=== PATIENT | male | born 1940 | race Caucasian/White ===

== ENCOUNTER 2020-04-19 12:18 | Emergency (ER) | payer MEDICARE, OTHER, SELFPAY ==
--- NOTE | ~2020-04-19 | XR_ITS ---
XR hip LT min 3V w AP pelvis DATE: 04/19/2020 14:03 INDICATION: Fall. Left hip injury, pain TECHNIQUE: AP pelvis. AP, lateral and crosstable lateral views of left hip COMPARISON: None FINDINGS: There is a posterior medially displaced fracture of the proximal to mid shaft of the left f emur. There is mild osteoarthritic spurring of the left femoral head. No fracture or dislocation, avascular necrosis or bone destruction is noted at the left hip. No pelvic fracture is evident. The pubic symphysis and sacroiliac joints are intact. IMPRESSION: Fracture of the left femoral shaft Osteoarthritic is of the left hip joint Reviewed, dictated and finalized at location B. SPECIALIST
--- NOTE | ~2020-04-19 | XR_ITS ---
XR chest 1V DATE: 04/19/2020 14:03 INDICATION: Fall TECHNIQUE: 2 AP views COMPARISON: 08/01/2017 portable AP chest FINDINGS: Status post sternotomy. Normal heart size. Aortic arch calcification. No pulmonary infiltrate or consolidation, pleural effusion or pulmonary vascular congestion or pneumo thorax is evident. Diffuse osteopenia. There is osteoarthritic change at the left glenohumeral joint. IMPRESSION: Status post sternotomy; no active cardiopulmonary disease Reviewed, dictated and finalized at location B. AULIC DREDGE OPERATOR
--- NOTE | ~2020-04-19 | XR_ITS ---
XR knee LT 2V DATE: 04/19/2020 14:03 INDICATION: Fall. Left leg injury TECHNIQUE: AP and crosstable lateral views COMPARISON: None FINDINGS: There is a posterolaterally displaced fracture of the mid femoral shaft. There is a long stem femoral articular prosthesis associated with left knee arthroplasty with patella r resurfacing. The prosthetic components appear intact and normally aligned. IMPRESSION: Posterolaterally displaced fracture of the midshaft of the left femur Reviewed, dictated and finalized at location B. PLACEMENT IMPRESSION: Posterolaterally displaced fracture of the midshaft of the left fem ur
--- NOTE | ~2020-04-19 | XR_ITS ---
XR femur LT min 2V DATE: 04/19/2020 14:03 INDICATION: Fall TECHNIQUE: AP and crosstable lateral views COMPARISON: 04/19/2020 left femur FINDINGS: There is a fracture of the mid shaft of the left femur with complete posterolateral displac ement. Left total knee arthroplasty, including long stem femoral component. The prosthetic components appea r intact and normally aligned. IMPRESSION: Mid shaft fracture of left femur Reviewed, dictated and finalized at location B. YST BUSINESS ANALYSIS
--- NOTE | ~2020-04-19 | CT_ITS ---
EXAMINATION: CT brain wo con DATE: 04/19/2020 13:45 INDICATION: Status post fall. Head injury. TECHNIQUE: Computed tomography (CT) of the head was performed without intravenous contrast. The dose- length product was 605.33 mGy-cm. The mA was adjusted according to patient size. Iterative reconstruc tion technique was employed. COMPARISON: CT dated 08/01/2017 FINDINGS: Small chronic right thalamic infarction. Generalized atrophy. There are scattered mild guru ventricular and subcortical white matter changes, most likely related to small vessel ischemic diseas e (microangiopathy). No ventriculomegaly or midline shift. There is intracranial atherosclerosis. Par anasal sinuses and mastoids are pneumatized. No depressed skull fractures. No acute intracranial hemo rrhage, infarction, mass or mass effect. IMPRESSION: 1. No acute intracranial abnormality. 2: Focal chronic right thalamic infarction. 3: Chronic age-related findings. Reviewed, dictated and finalized at location A. ER WINDER
[2020-04-19 12:26] VITALS: BP 187/91; PULSE 65; RESP 18; TEMP 36.4; O2SAT 100
--- NOTE | 2020-04-19 13:25 | ED.FALL ---
HPI - Fall General Chief Complaint: Fall Stated Complaint: FALL Time Seen by Provider: 04/19/20 12:44 Source: family and EMS Mode of arrival: EMS History of Present Illness HPI Narrative: Patient is 80 years old white male came to the emergency room by ambulance after a fall at home. Patient's is telling me that patient had history of CVA, with left hemiplegia. Usually uses a walker, today was not using his walker somehow lost his balance and fell. Possible head injury. No loss of consciousness. Patient on aspirin and Plavix. Patient complaining of left knee and left groin pain. Patient denies other injuries. Related Data Allergies Allergy/AdvReac Type Severity Reaction Status Date / Time niacin Allergy Mild HOT FLASHES Verified 04/19/20 12:32 codeine AdvReac Mild NAUSEA/SORE Verified 04/19/20 12:32 STOMACH lisinopril AdvReac Mild DRY COUGH Verified 04/19/20 12:32 Review of Systems Review of Systems: Narrative: CONSTITUTIONAL: Denies fever, chills, or sweats. EYES: Denies visual changes, redness, or discharge. ENT: Denies rhinorrhea, congestion, sore throat, or otalgia. CARDIOVASCULAR: Denies chest pain, palpitations, or edema. RESPIRATORY: Denies cough or dyspnea. GASTROINTESTINAL: Denies abdominal pain, nausea, vomiting, or diarrhea. GENITOURINARY: Denies dysuria or hematuria. SKIN: Denies rash or itching. MUSCULOSKELETAL: Denies back pain, joint pain, or myalgia. NEUROLOGIC: Denies headache, numbness, or weakness. PSYCHIATRIC: Denies anxiety or depression. PMFSH Past Medical History Medical History (Updated 04/19/20 @ 16:16 by Margarito Tidwell MD) Left hemiplegia Social History Social History Gender identity (if verbalized by the patient): Male Exam Narrative: Exam Narrative: General appearance: Well-developed, well-nourished Skin: Normal color Head: Normocephalic, nontraumatic Eyes: Clear conjunctiva ENT: Oropharynx normal, ears normal, nose normal Neck: Supple, nontender Chest and respiratory: Airway patent, no respiratory distress, no accessory muscle use Heart: Regular rate/rhythm Abdomen: Soft, nontender, no organomegaly, quiet bowel sounds Vascular: Normal peripheral pulses, normal capillary refill. Musculoskeletal: Diffuse pain left knee anteriorly, no deformity, limited range of motion of left knee and left hip. Left lower extremity is shorter and externally rotated compared to the right while Neurologic: Alert and oriented ?3, PERSONAL LINES INSURANCE AGENT is normal as tested, no gross motor deficit Course Course Emergency Course: Stable Consultations Consultation #1: Dr. Dubose/ Transfer the patient to other facility because of the knee prosthesis Date: 04/19/20 Time: 16:16 Consultation #2: Dr. Perez/[facility] ED physician Date: 04/19/20 Time: 16:17 Vital Signs Vital signs: Vital Signs Temperature 36.4 C L 04/19/20 12:26 Pulse Rate 65 04/19/20 12:26 Respiratory Rate 18 04/19/20 12:26 Blood Pressure 187/91 H 04/19/20 12:26 Pulse Oximetry 100 04/19/20 12:26 Temperature 36.4 C L 04/19/20 12:26 Pulse Rate 65 04/19/20 16:17 Respiratory Rate 18 04/19/20 16:17 Blood Pressure 204/78 H 04/19/20 16:17 Pulse Oximetry 99 04/19/20 16:17 MDM - Fall MDM Narrative Medical decision making narrative: Patient came with a fall. Labs, CT head, x-ray left hip and pelvis, x-ray left knee, Zofran and morphine IV ordered. Further plan to follow Differential Diagnosis Differential diagnosis: Likely concussion without loss of consciousness and other (Electrolyte imbalance, urinary tract infection, head injury, hip fracture or knee fracture) Lab Data
--- NOTE | 2020-04-19 13:41 | PC.NURSE ---
Pt to XRAY via stretcher.
[2020-04-19] MEDS: MORPHINE SULFATE (*CRX) 4 MG/ML INJ IV PUSH (14:13)
[2020-04-19] MEDS: ONDANSETRON INJ 4 MG/2 ML VIAL IV PUSH (14:13)
[2020-04-19 14:17] VITALS: BP 222/86; PULSE 63; RESP 18; O2SAT 100
[2020-04-19 14:44] LABS: Partial Thromboplastin Time 25.6 SECONDS (22.3-36.8); Prothrombin Time 13.9 Seconds (11.1-14.7)
[2020-04-19 14:50] LABS: Alanine Aminotransferase 15 U/L (4-50); Albumin Level 3.9 g/dL (3.5-5.1); Alkaline Phosphatase 62 U/L (38-126); Anion Gap 3 mmol/L (8-16); Aspartate Amino Transferase 24 U/L (17-59); Bilirubin,Total 0.9 mg/dL (0.2-1.3); Blood Urea Nitrogen 19 mg/dL (9-20); Calcium 9.5 mg/dL (8.4-10.2); Carbon Dioxide 30 mmol/L (22-30); Chloride 107 mmol/L (98-107); Estimated CRCL calculation 46 ml/min; Estimated Glomerular Filt Rate 49; Glucose 123 mg/dL (75-110); Potassium 5.8 mmol/L (3.4-5.0); Sodium 140 mmol/L (137-145)
[2020-04-19 14:51] LABS: Add Urine Microscopic? YES; Appearance Urine Clear (Clear); Bilirubin Urine Negative (Negative); Blood Urine Negative (Negative); Color Urine Yellow (Yellow); Glucose Urine UA 1+ mg/dL (Negative); Ketones Urine Negative (Negative); Leukocyte Esterase Ur Negative LEU/UL (Negative); Mucus Urine Rare /lpf; Nitrate Urine Negative (Negative); Protein Urine Negative (Negative); RBC Urine 0-2 /hpf (0-2); Specific Grav Ur 1.016 (1.001-1.035); Urobilinogen Urine Negative mg/dL (<2.0); WBC Urine 0-3 /hpf
[2020-04-19 14:59] VITALS: BP 198/93; PULSE 73; RESP 18; O2SAT 100
[2020-04-19] MEDS: LABETALOL HCL INJ 100 MG/20 ML VIAL 20 MG IV PUSH (16:16)
[2020-04-19 16:17] VITALS: BP 204/78; PULSE 65; RESP 18; O2SAT 99
[2020-04-19 16:40] VITALS: BP 154/84; PULSE 66; RESP 14; O2SAT 99
[2020-04-19 16:59] VITALS: BP 179/85; PULSE 60; RESP 16; O2SAT 99
== END 2020-04-19 17:01 | disposition short-term general hospital (02) ==
PROVIDERS: Emergency Provider Emergency Medicine; PCP Internal Medicine
DX: E87.5 Hyperkalemia (principal); S72.332A Displaced oblique fracture of shaft of left femur, initial encounter for closed fracture; W01.0XXA Fall on same level from slipping, tripping and stumbling without subsequent striking against object, initial encounter; I69.954 Hemiplegia and hemiparesis following unspecified cerebrovascular disease affecting left non-dominant side
CPT/HCPCS: 36415; 51701; 70450; 71045; 73502; 73552; 73560; 80053; 81001; 85610; 85730; 96374; 96375; 99285; J2270; J2405

== ENCOUNTER 2021-07-21 19:27 | Emergency (ER) | payer MEDICARE, OTHER, SELFPAY ==
[2021-07-21] VITALS (12 sets, daily range): BP systolic 160–237; BP diastolic 72–168; PULSE 67–89; RESP 17–23; TEMP 36.7; O2SAT 96–100
--- NOTE | 2021-07-21 19:38 | ED.GENADULT ---
HPI - General Adult General Chief complaint: Recheck/Abnormal Lab/Rx Stated complaint: hypoglycemia given 1/2 amp d50 Time Seen by Provider: 07/21/21 19:30 Source: patient and family History of Present Illness HPI narrative: 81-year-old male presents the emergency department for evaluation of hypoglycemia. Patient states he went to bed at approximately 1 AM and slept until approximately 6 PM. Patient is unsure of why he slept so long. had difficulty waking the patient and so she called EMS. Upon arrival to the scene patient had a blood glucose of 40. Patient was treated with D50 and had a significant improvement in his mental status. Upon arrival to the emerge department patient was alert oriented and denied any complaints. states that the patient has had increased generalized weakness over the last few days. Patient denies any complaint. states that she did check on the patient throughout the day but let him sleep. Patient was hypertensive upon arrival but had not had any of his home medications today. Related Data Home Medications Medication Instructions Recorded Confirmed clopidogrel 75 mg PO DAILY 07/21/21 fenofibrate nanocrystallized 145 mg PO DAILY 07/21/21 furosemide 40 mg PO DAILY 07/21/21 glimepiride 4 mg PO BID 07/21/21 isosorbide mononitrate 60 mg PO DAILY 07/21/21 losartan 100 mg PO DAILY 07/21/21 metoprolol tartrate 50 mg PO BID 07/21/21 simvastatin 20 mg PO DAILY 07/21/21 Allergies Allergy/AdvReac Type Severity Reaction Status Date / Time niacin Allergy Mild HOT FLASHES Verified 04/19/20 12:32 codeine AdvReac Mild NAUSEA/SORE Verified 04/19/20 12:32 STOMACH lisinopril AdvReac Mild DRY COUGH Verified 04/19/20 12:32 Review of Systems Review of Systems: CONSTITUTIONAL: Denies fever, chills, or sweats. EYES: Denies visual changes, redness, or discharge. ENT: Denies rhinorrhea, congestion, sore throat, or otalgia. CARDIOVASCULAR: Denies chest pain, palpitations, or edema. RESPIRATORY: Denies cough or dyspnea. GASTROINTESTINAL: Denies abdominal pain, nausea, vomiting, or diarrhea. GENITOURINARY: Denies dysuria or hematuria. SKIN: Denies rash or itching. MUSCULOSKELETAL: Denies back pain, joint pain, or myalgia. NEUROLOGIC: Denies headache, numbness, or weakness. PSYCHIATRIC: Denies anxiety or depression. All systems reviewed & are unremarkable except as noted in HPI and below PMFSH Past Medical History Medical History (Updated 07/22/21 @ 00:03 by Pravin Robb MD) Left hemiplegia Social History Social History Gender identity (if verbalized by the patient): Male Exam Narrative: APPEARANCE: Well appearing, no pain, no distress, well-nourished. HEAD: normocephalic, atraumatic. EYES: PERRLA/EOMI, conjunctivae clear. NOSE: Normal no drainage NECK: Supple. No adenopathy, no masses. RESPIRATORY: Airway patent, respirations nonlabored. Clear to auscultation bilaterally, no rales, rhonchi, wheezing. CARDIOVASCULAR: Regular rate and rhythm without murmurs rubs or gallops. ABDOMINAL: Soft, nontender, nondistended, normal bowel sounds MUSCULOSKELETAL: Moves all extremities. Strength/ROM intact, No edema, No calf tenderness. NEURO: Alert. Cranial nerves II through XII intact. No focal weakness. SKIN: Warm, dry. Normal Color PSYCHIATRIC: Normal affect/mood. Course Course Emergency Course: Patient's blood pressure is improved after he was treated with his home dose of metoprolol. Patient's blood sugar is stable. Patient is tolerating p.o. No evidence of infection. Patient does feel back to his normal baseline. Patient states he does not ambulate very much at baseline but does use a walker and a wheelchair. Patient did have a greater than expected amount of difficulty with ambulation. I had a discussion with both the patient and the regarding admission because I did not feel the patient would do well at home due to his i
[2021-07-21 19:40] LABS: Glucose Point of Care 64 mg/dl (65-105)
[2021-07-21] MEDS: DEXTROSE 50% 25 GM/50 ML SYRINGE (20:01)
[2021-07-21] MEDS: hydrALAZINE HCL 20 MG/ML VIAL 10 MG IV PUSH (20:01)
[2021-07-21] MEDS: METOPROLOL TARTRATE 50 MG TAB PO (20:14)
[2021-07-21 20:18] LABS: Glucose Point of Care 166 mg/dl (65-105)
[2021-07-21 21:25] LABS: Add Urine Microscopic? YES; Appearance Urine Clear (Clear); Bilirubin Urine Negative (Negative); Blood Urine Negative (Negative); Color Urine Yellow (Yellow); Glucose Urine UA 2+ mg/dL (Negative); Ketones Urine Negative (Negative); Leukocyte Esterase Ur Negative LEU/UL (Negative); Nitrate Urine Negative (Negative); Protein Urine 1+ mg/dL (Negative); RBC Urine 0-2 /hpf (0-2); Specific Grav Ur 1.014 (1.001-1.035); Urobilinogen Urine Negative mg/dL (<2.0); WBC Urine 0-3 /hpf
[2021-07-21 22:02] LABS: Basophils Percent Auto 0.4 % (0.2-1.2); Eosinophils Percent Auto 0.2 % (0-4.4); Hemoglobin 14.8 g/dL (14.0-18.0); Immature Granulocyte Percent A 0.9 % (0-0.5); Lymphocytes Absolute Auto 1.73 K/mm3 (0.9-3.2); Lymphocytes Percent Auto 16.4 % (18.3-44.2); Mean Corpuscular HGB Conc 32.9 g/dl (32-36); Mean Corpuscular Hemoglobin 29.7 pg (26-34); Mean Corpuscular Volume 90.4 fl (80-100); Mean Platelet Volume 10.2 fl (7.4-10.4); Monocytes Absolute Auto 0.6 K/mm3 (0.1-0.6); Monocytes Percent Auto 5.4 % (2.6-8.5); Neutrophils Absolute Auto 8.1 K/mm3 (1.3-6.7); Neutrophils Percent Auto 76.7 % (45.5-73.1); Platelet Count Result 193 k/mm3 (150-375); Red Blood Count 4.98 M/mm3 (4.6-6.20); Red Cell Distribution Width 13.7 % (11.5-14.5); White Blood Count 10.5 K/mm3 (4.5-10.0)
[2021-07-21 22:16] LABS: Lactic Acid Reflex 1.9 mmol/L (0.7-2.1)
[2021-07-21 22:17] LABS: Alanine Aminotransferase 15 U/L (4-50); Albumin Level 4.1 g/dL (3.5-5.1); Alkaline Phosphatase 63 U/L (38-126); Anion Gap 8 mmol/L (8-16); Aspartate Amino Transferase 28 U/L (17-59); Bilirubin,Total 1.1 mg/dL (0.2-1.3); Blood Urea Nitrogen 19 mg/dL (9-20); Calcium 9.1 mg/dL (8.4-10.2); Carbon Dioxide 27 mmol/L (22-30); Chloride 105 mmol/L (98-107); Estimated CRCL calculation 56 ml/min; Estimated Glomerular Filt Rate 53; Glucose 215 mg/dL (65-110); Potassium 4.4 mmol/L (3.4-5.0); Sodium 140 mmol/L (137-145)
--- NOTE | 2021-07-21 23:34 | PC.NURSE ---
Pt reports frustration due to waiting for so long for discharge even though he feels better , pt states he is ready to go home. Discussed with pt the EDP is with a critical patient and that this RN will update as soon as he is available. Pt verbalized understanding. EDP Dr Robb made aware and will re eval pt and d/c as soon as able. Pt remains on tele monitor, VSS.
--- NOTE | 2021-07-22 00:01 | PC.NURSE ---
EDP at bedside w/ pt to discuss POC.
== END 2021-07-22 00:31 | disposition home or self-care (01) ==
PROVIDERS: Emergency Provider Emergency Medicine; PCP Internal Medicine
DX: E11.649 Type 2 diabetes mellitus with hypoglycemia without coma (principal); G81.94 Hemiplegia, unspecified affecting left nondominant side; Z79.84 Long term (current) use of oral hypoglycemic drugs
CPT/HCPCS: 36415; 80053; 81001; 82948; 83605; 85025; 96374; 96375; 99284; A9270; J0360